=== PATIENT | male | born 1955 | race Caucasian/White ===

== ENCOUNTER 2022-06-02 14:06 | Emergency (ER) | payer OTHER ==
[~2022-06-02] VITALS: Ht 170.2 cm; Wt 84.4 kg
[2022-06-02 14:23] VITALS: BP 152/80
--- NOTE | 2022-06-02 15:22 | NUR ---
67 yo/m presents to ed w c/o blistering rash started approx x1 week ago to L side of chin spreading to L jaw/cheek and down neck/L shoulder, itching and stining, no pain at this time, + x1 episode of feeling his eardrum pulsating w/o changes in hearing or pain, + subjective fevers, and nausea. denies chest pain or sob. ermd at bedside assessing pt. pmh: dm allergies: denies
[2022-06-02] MEDS ORDERED: CEPH500C16 PO (15:33)
[2022-06-02] MEDS ORDERED: PRED20TA5 PO (15:33)
[2022-06-02] MEDS ORDERED: IBUP-2213 PO (15:33)
[2022-06-02 15:46] VITALS: BP 148/79
--- NOTE | 2022-06-02 15:48 | NUR ---
Patient discharged with v/s stable. Written and verbal after care instructions given and explained. Patient alert, oriented and verbalized understanding of instructions. Ambulatory with steady gait. All questions addressed prior to discharge. ID band removed. Patient advised to follow up with PMD. Rx of keflex, ibuprofen, prednisone given. Patient educated on indication of medication including possible reaction and side effects. Opportunity to ask questions provided and answered.
== END 2022-06-02 15:46 | disposition home or self-care (01) ==
LOC: MED 14:06
DX: B02.9 Zoster without complications (principal); L03.211 Cellulitis of face; E11.9 Type 2 diabetes mellitus without complications; Z79.4 Long term (current) use of insulin; Z79.899 Other long term (current) drug therapy
CPT/HCPCS: 99283